=== PATIENT | male | born 2000 | race Caucasian/White ===

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

== ENCOUNTER 2020-05-21 05:29 | Emergency (ER) | payer BC ==
[2020-05-21] MEDS ORDERED: Dicyclomine 10 MG Cap PO ONE (06:13)
--- NOTE | 2020-05-21 06:13 | EDM.PDOC ---
ED HPI GENERAL MEDICAL PROBLEM - General Chief Complaint: Abdominal Pain Stated Complaint: STOMACK PAIN Time Seen by Provider: 05/21/20 06:04 - History of Present Illness INITIAL COMMENTS - FREE TEXT/NARRATIVE: HISTORY AND PHYSICAL: History of present illness: There is a 19-year-old gentleman who presents ER today secondary to abdominal pain that started when he woke up this morning at 4:00. Patient reports that he has had abdominal pain similar to this has been intermittent for approximately 1 year. Patient reports that he went to walk-in clinic and they checked his blood tests and they were all normal but has a follow-up appointment on May 30 for further evaluation. Patient reports that this morning when he woke up he was experiencing some abdominal discomfort. Patient reports that he felt like he had to move his bowels and took him a while to be able to move his bowels. Patient reports after moving his bowels he did feel slightly improved but still having discomfort. Patient reports after moving his bowels he came here to the ED for further evaluation. Patient denies any recent fevers, shakes, chills, nausea, vomiting, diarrhea, dysuria, frequency, urgency, melena, bright red blood per rectum. Patient has a history of hypertension, diabetes, liver, lung, kidney problems. Patient denies any tobacco alcohol or drugs. Patient denies any abdominal or chest surgeries in the past. Patient reports currently his pain is significantly improved prior to any intervention. He reports the pain improved on route to the ED. Review of systems: As per history of present illness and below otherwise all systems reviewed and negative. Past medical history: As per history of present illness and as reviewed below otherwise noncontributory. Surgical history: As per history of present illness and as reviewed below otherwise noncontributory. Social history: No reported history of drug or alcohol abuse. Family history: As per history of present illness and as reviewed below otherwise noncontrib utory. Physical exam: This patient was seen and evaluated during the 2019 SARS-CoV-2 novel coronavirus pandemic period. Community viral transmission is ongoing at time of this encounter and the emergency department is operating under pandemic response procedures. Constitutional: Patient is oriented to person, place, and time. Appears well- developed and well-nourished. No distress. HEENT: Moist mucous membranes Head: Normocephalic and atraumatic Eyes: Right eye exhibits no discharge. Left eye exhibits no discharge. No scleral icterus Neck: Normal range of motion. No tracheal deviation present. Cardiovascular: Normal rate and regular rhythm. Pulmonary: Effort normal, no respiratory distress. Abd: Soft, nondistended, no rebound/guarding, no psoas or obturator signs, no tenderness at Mcberney's point, no Mendoza's sign. Pt does not present with an exam that would be consistent with an acute surgical abdomen at this time, nontender to palpation diffusely throughout his abdomen there was no pain with deep palpation. Musculoskeletal: Normal range of motion Neurologic: Alert and oriented to person, place and time. Skin: Sidell, warm and dry. Psychiatric: Normal mood and affect. Behavior is normal. Judgment and thought content normal. Nursing note and vital signs have been reviewed Diagnostics: Obstruction series: Nonspecific gas pattern. No free air or air-fluid levels. Therapeutics: Bentyl 20 mg p.o. Assessment and plan: This is a 19-year-old gentleman who presents ER today complaining of abdominal discomfort has been intermittent for approximately a year.. Patient does have an appointment with a primary care physician on 30 May for further evaluation. He reports that his blood tests were all been normal in the past but he went to the walk-in clinic to evaluate his pain. At this time, the patient does not present with an acute surgical abdomen. Patient reports that the pain had significantly improved in route to the ED and it is almost completely gone. In the ED, we will obtain obstruction series. I will give the patient a dose of Bentyl. Patient was reevaluated at 6:50 AM: Patient reports that he cannot feel his pain at this time that has resolved. Etiology the patient's pain is unclear but could be related to irritable bowel syndrome. I have discussed with the patient that we will initiate him on Bentyl to see if that might help with symptoms until he is able to follow-up with his primary care physician on May 30. Reassessment at the time of disposition demonstrates that the patient is in no acute distress. The patient has remained stable throughout the entire ED visit and is without objective evidence for acute process requiring urgent intervention or hospitalization. The patient is stable for discharge, counseling is provided as documented above, discussed symptomatic treatment and specific conditions for return. I have spoken with the patient/caregiver and discussed todays findings, in addition to providing specific details for the plan of care. Questions are answered and there is agreement with the plan. Definitive disposition and diagnosis as appropriate pending reevaluation and review of above. abd Pain Score (Numeric/FACES): 5 - Related Data Allergies Allergy/AdvReac Type Severity Reaction Status Date / Time No Known Allergies Allergy Verified 05/21/20 05:48 Home Meds: Home Meds Dicyclomine [Bentyl] 20 mg PO TID PRN #20 tab 05/21/20 [Rx] Past Medical History - Past Health History Medical/Surgical History: Denies Medical/Surgical History HEENT History: Reports: None Cardiovascular History: Reports: None Respiratory History: Reports: None Gastrointestinal History: Reports: None Genitourinary History: Reports: None Musculoskeletal History: Reports: None Neurological History: Reports: None Psychiatric History: Reports: Anxiety, Depression, Other (See Below) Other Psychiatric History: self harm Endocrine/Metabolic History: Reports: None Hematologic History: Reports: None Immunologic History: Reports: None Oncologic (Cancer) History: Reports: None Dermatologic History: Reports: None - Infectious Disease History Infectious Disease History: Reports: None - Past Surgical History Head Surgeries/Procedures: Reports: None Social & Family History - Family History Family Medical History: No Pertinent Family History - Caffeine Use Caffeine Use: Reports: Coffee, Energy Drinks, Soda ED ROS GENERAL - Review of Systems Review Of Systems: See Below ED EXAM, GENERAL - Physical Exam Exam: See Below Course - Vital Signs Last Recorded V/S: Last Vital Signs Temp 98.0 F 05/21/20 05:48 Pulse 89 05/21/20 05:48 Resp 18 05/21/20 05:48 BP 129/69 05/21/20 05:48 Pulse Ox 94 L 05/21/20 05:48 - Orders/Labs/Meds Meds: Medications Discontinued Medications Generic Name Dose Route Start Last Admin Trade Name Freq PRN Reason Stop Dose Admin Dicyclomine HCl 20 mg 05/21/20 06:13 05/21/20 06:34 Dicyclomine 10 Mg Cap PO 05/21/20 06:14 20 mg ONETIME ONE Administration Departure - Departure Time of Disposition: 06:53 Disposition: Home, Self-Care 01 Condition: Good Clinical Impression: Abdominal pain - Discharge Information Instructions: Abdominal Pain, Adult, [id number] Referrals: [facility] [Primary Care Provider] - Forms: ED Department Discharge Additional Instructions: You were seen and evaluated in the ER today secondary to abdominal pain. Etiology of your pain is unclear. Your x-ray is normal. We will start you with Bentyl which is an antispasmodic that might assist you with your symptoms. Please keep your appointment on May 30 to see your doctor for further evaluation of your symptoms. The following information is given to patients seen in the emergency department who are being discharged to home. This information is to outline your options for follow-up care. We provide all patients seen in our emergency department with a follow-up referral. The need for follow-up, as well as the timing and circumstances, are variable depending upon the specifics of your emergency department visit. If you don't have a primary care physician on staff, we will provide you with a referral. We always advise you to contact your personal physician following an emergency department visit to inform them of the circumstance of the visit and for follow-up with them and/or the need for any referrals to a consulting specialist. The emergency department will also refer you to a specialist when appropriate. This referral assures that you have the opportunity for follow-up care with a specialist. All of these measure are taken in an effort to provide you with optimal care, which includes your follow-up. Under all circumstances we always encourage you to contact your private physician who remains a resource for coordinating your care. When calling for follow-up care, please make the office aware that this follow-up is from your recent emergency room visit. If for any reason you are refused follow-up, please contact the [facility] Emergency Department at and asked to speak to the emergency department charge nurse. [facility] - Primary Care [address] [place] [id number] [address] Sepsis Event Note (ED) - Evaluation Sepsis Screening Result: No Definite Risk - Focused Exam Vital Signs: Vital Signs Temp Pulse Resp BP Pulse Ox 05/21/20 05:48 98.0 F 89 18 129/69 94 L
--- NOTE | 2020-05-21 06:45 | CR ---
INDICATION: Abdominal pain. COMPARISON: None. TECHNIQUE: Radiographic examination of the abdomen and chest 5 view study. FINDINGS: Nonspecific intestinal gas pattern without any evidence of intestinal obstruction. No pneumoperitoneum. A 15 mm sclerotic density projecting over the left sacroiliac articulation; rule out bone island. Chest radiograph is unremarkable. IMPRESSION: 1. Negative radiographic examination of the chest and abdomen. 2. 15 mm sclerotic density overlying the left pelvis; rule out bone island. Dictated by Oh Nazario MD @ May 21 2020 6:42AM Signed by Dr. Oh Nazario @ May 21 2020 6:44AM
== END 2020-05-21 07:05 | disposition home or self-care (01) ==
LOC: MW.ED 05:29
DX: R10.9 Unspecified abdominal pain (principal)
CPT/HCPCS: 74022; 99284; A9270; 99283

== ENCOUNTER 2020-11-12 08:44 | Emergency (ER) | payer BC ==
--- NOTE | 2020-11-12 09:03 | EDM.PDOC ---
ED HPI GENERAL MEDICAL PROBLEM - General Chief Complaint: Chest Pain Stated Complaint: HEART PROBLEMS/SOB/WEIGHT ON CHEST Time Seen by Provider: 11/12/20 08:54 - History of Present Illness INITIAL COMMENTS - FREE TEXT/NARRATIVE: History of present illness: [] The patient reports chest pain. He for started noting he got diaphoretic at work even when the temperature was not elevated for the last 7 mornings. He also 5 days ago started having brief intermittent less than 1 second sharp chest pains worse when he coughs or breathes. For the last 5 mornings when he wakes up he has little pressure in his chest and this is associated with diaphoresis. It does not change with activity. It is in the left side of his chest and feels like someone squeezing there. This is gone on since at least 730 this morning when he arrives today. It did not get better or worse at work but he was diaphoretic. His pain is never associated with nausea but perhaps a little bit of shortness of breath. Cardiovascular risk-the patient is a smoker but never as much as a pack a day and has quit recently and been trying to quit. He is not treated for diabetes hypertension or cholesterol. He is overweight. He has no family history that he knows of coronary vessel disease. Thromboembolic disease risk-the patient has no recent trip immobilization surgery or cast. The patient has not had any recent travel of any significance in a car or plane. The patient has never had thromboembolic disease and does not know any family members that have. Review of systems: As per history of present illness and below otherwise all systems reviewed and negative. Past medical history: As per history of present illness and as reviewed below otherwise noncontributory. Surgical history: As per history of present illness and as reviewed below otherwise noncontributory. Social history: No reported history of drug or alcohol abuse. Family history: As per history of present illness and as reviewed below otherwise noncontributory. Physical exam: Constitutional - well developed, well-nourished and in no acute distress HEENT - normocephalic, no evidence of trauma - external nose and mouth normal - no mass in neck and no JVD - mucosae moist EYES - full EOM, PERRL, no icterus - no evidence of inflammation, injection, or drainage Respiratory - no respiratory distress, equal bilateral expansion, lungs clear to auscultation and no abnormal lung sounds Cardiovascular - Regular Rhythm with S1 and S2 appreciated and no murmur, gallop or rub. GI - abdomen soft without distension or organomegaly - normal bowel sounds - no guard or rebound Musculoskeletal there is tenderness in the left sternal border and his pain increases with active resistance with the pectoralis major muscles. No gross deformity of long bones or joints - no tenderness, swelling or edema Neurologic - Alert and oriented times four - CN II-XII grossly intact - motor sensory and coordination symmetrically normal Psychiatric - appropriate mood and affect with normal thought content Hematologic - No petechiae or purpura - mucosa appropriate color and sclera not pale - normal nail bed color and refill Integument - no rash or evidence of trauma - normal turgor Diagnostics: [] Therapeutics: [] Impression: [] Plan: [] Definitive disposition and diagnosis as appropriate pending reevaluation and review of above. Left Chest Pain Score (Numeric/FACES): 4 - Related Data Allergies Allergy/AdvReac Type Severity Reaction Status Date / Time No Known Allergies Allergy Verified 11/12/20 08:53 Past Medical History - Past Health History Medical/Surgical History: Denies Medical/Surgical History HEENT History: Reports: None Cardiovascular History: Reports: None Respiratory History: Reports: None Gastrointestinal History: Reports: None Genitourinary History: Reports: None Musculoskeletal History: Reports: None Neurological History: Reports: None Psychiatric History: Reports: Anxiety, Depression, Other (See Below) Other Psychiatric History: self harm Endocrine/Metabolic History: Reports: None Hematologic History: Reports: None Immunologic History: Reports: None Oncologic (Cancer) History: Reports: None Dermatologic History: Reports: None - Infectious Disease History Infectious Disease History: Reports: None - Past Surgical History Head Surgeries/Procedures: Reports: None Social & Family History - Family History Family Medical History: No Pertinent Family History - Caffeine Use Caffeine Use: Reports: Coffee, Energy Drinks, Soda ED ROS GENERAL - Review of Systems Review Of Systems: Comprehensive ROS is negative, except as noted in HPI. ED EXAM, GENERAL - Physical Exam Exam: See Below Free Text/Narrative:: My physical exam is in the HPI #1 Interpretation EKG Interpretation Comments: EKG performed 11/12/2020 at 8:54 AM shows normal sinus rhythm with a heart rate 62 RI interval 156 QT duration 398 [place] [address] normal T no prior for comparison impression normal EKG Course - Vital Signs Text/Narrative:: 1030 it appears this patient has chest wall pain or musculoskeletal pain. Since his onset of significant pressure was 7:30 AM I will repeat his troponin at 1130 to be sure. 12:50 PM the troponin remains negative. Patient treated for chest wall pain. Last Recorded V/S: Last Vital Signs Temp 36.3 C 11/12/20 08:55 Pulse 88 11/12/20 12:23 Resp 17 11/12/20 12:23 BP 112/74 11/12/20 12:23 Pulse Ox 96 11/12/20 12:23 - Orders/Labs/Meds Orders: Active Orders 24 hr Category Date Time Status Sodium Chloride 0.9% [Saline Flush] Med 11/12/20 09:16 Active 10 ml FLUSH ASDIRECTED PRN Sodium Chloride 0.9% [Saline Flush] Med 11/12/20 09:16 Active 2.5 ml FLUSH ASDIRECTED PRN Saline Lock Insert [OM.PC] Stat Oth 11/12/20 09:17 Ordered Medication Orders Sodium Chloride (Sodium Chloride 0.9% 10 Ml Syringe) 10 ml FLUSH ASDIRECTED PRN PRN Reason: Keep Vein Open Last Admin: 11/12/20 09:46 Dose: 10 ml Documented by: Admin: 11/12/20 09:31 Dose: 10 ml Documented by: EZEKIEL Sodium Chloride (Sodium Chloride 0.9% 2.5 Ml Syringe) 2.5 ml FLUSH ASDIRECTED PRN PRN Reason: Keep Vein Open Last Admin: 11/12/20 09:46 Dose: 2.5 ml Documented by: Admin: 11/12/20 09:31 Dose: 2.5 ml Documented by: EZEKIEL Labs: Laboratory Tests 11/12/20 11/12/20 11/12/20 Range/Units 09:39 09:39 11:33 WBC 5.67 (4.0-11.0) K/uL RBC 5.15 (4.50-5.90) M/uL Hgb 15.5 (13.0-17.0) g/dL Hct 42.8 (38.0-50.0) % MCV 83.1 (80.0-98.0) fL MCH 30.1 (27.0-32.0) pg MCHC 36.2 (31.0-37.0) g/dL RDW Std Deviation 40.7 (28.0-62.0) fl RDW Coeff of Fernando 14 (11.0-15.0) % Plt Count 253 (150-400) K/uL MPV 9.40 (7.40-12.00) fL Neut % (Auto) 50.0 (48.0-80.0) % Lymph % (Auto) 38.3 (16.0-40.0) % [place] % (Auto) 7.6 (0.0-15.0) % Eos % (Auto) 3.7 (0.0-7.0) % Baso % (Auto) 0.4 (0.0-1.5) % Neut # (Auto) 2.8 (1.4-5.7) K/uL Lymph # (Auto) 2.2 (0.6-2.4) K/uL [place]berry # (Auto) 0.4 (0.0-0.8) K/uL Eos # (Auto) 0.2 (0.0-0.7) K/uL Baso # (Auto) 0.0 (0.0-0.1) K/uL Nucleated RBC % 0.0 /100WBC Nucleated RBCs # 0 K/uL Sodium 142 (136-148) mmol/L Potassium 3.7 (3.5-5.1) mmol/L Chloride 103 (98-107) mmol/L Carbon Dioxide 26.1 (21.0-32.0) mmol/L BUN 15 (7.0-18.0) mg/dL Creatinine 1.0 (0.8-1.3) mg/dL Est Cr Clr Drug Dosing 129.33 mL/min Estimated GFR (MDRD) > 60.0 ml/min Glucose 90 (74-106) mg/dL Calcium 9.3 (8.5-10.1) mg/dL Total Bilirubin 0.3 (0.2-1.0) mg/dL AST 22 (15-37) IU/L ALT 35 (14-63) IU/L Alkaline Phosphatase 96 (46-116) U/L Troponin I < 0.050 < 0.050 (0.000-0.056) ng/mL Total Protein 7.1 (6.4-8.2) g/dL Albumin 3.9 (3.4-5.0) g/dL Globulin 3.2 (2.6-4.0) g/dL Albumin/Globulin Ratio 1.2 (0.9-1.6) Meds: Medications Generic Name Dose Route Start Last Admin Trade Name Freq PRN Reason Stop Dose Admin Sodium Chloride 10 ml 11/12/20 09:16 11/12/20 09:46 Sodium Chloride 0.9% 10 Ml Syringe FLUSH 10 ml ASDIRECTED PRN Administration Keep Vein Open Sodium Chloride 2.5 ml 11/12/20 09:16 11/12/20 09:46 Sodium Chloride 0.9% 2.5 Ml Syringe FLUSH 2.5 ml ASDIRECTED PRN Administration Keep Vein Open Discontinued Medications Generic Name Dose Route Start Last Admin Trade Name Freq PRN Reason Stop Dose Admin Aspirin 324 mg 11/12/20 09:17 11/12/20 09:44 Aspirin 81 Mg Tab.Chew PO 11/12/20 09:18 324 mg ONETIME ONE Administration Departure - Departure Time of Disposition: 12:50 Disposition: Home, Self-Care 01 Condition: Good Clinical Impression: Musculoskeletal chest pain - Discharge Information Instructions: Chest Wall Pain, [id number] Referrals: PCP,None [Primary Care Provider] - Forms: ED Department Discharge Additional Instructions: Anti-inflammatories and heat to the area are best. Try to rest the pectoralis muscle on the left side is much as possible over the next few days. [facility] - Primary Care [address] [place] [address] [place] [phone] The following information is given to patients seen in the emergency department who are being discharged to home. This information is to outline your options for follow-up care. We provide all patients seen in our emergency department with a follow-up referral. The need for follow-up, as well as the timing and circumstances, are variable depending upon the specifics of your emergency department visit. If you don't have a primary care physician on staff, we will provide you with a referral. We always advise you to contact your personal physician following an emergency department visit to inform them of the circumstance of the visit and for follow-up with them and/or the need for any referrals to a consulting specialist. The emergency department will also refer you to a specialist when appropriate. This referral assures that you have the opportunity for follow-up care with a specialist. All of these measure are taken in an effort to provide you with optimal care, which includes your follow-up. Under all circumstances we always encourage you to contact your private physician who remains a resource for coordinating your care. When calling for follow-up care, please make the office aware that this follow-up is from your recent emergency room visit. If for any reason you are refused follow-up, please contact the [facility] Emergency Department at and asked to speak to the emergency department charge nurse. Sepsis Event Note (ED) - Focused Exam Vital Signs: Vital Signs Temp Pulse Resp BP Pulse Ox 11/12/20 12:23 88 17 112/74 96 11/12/20 08:55 36.3 C 72 17 121/71 96 - My Orders Last 24 Hours: My Active Orders 11/12/20 09:16 Sodium Chloride 0.9% [Saline Flush] 10 ml FLUSH ASDIRECTED PRN Sodium Chloride 0.9% [Saline Flush] 2.5 ml FLUSH ASDIRECTED PRN 11/12/20 09:17 Saline Lock Insert [OM.PC] Stat - Assessment/Plan Last 24 Hours: My Active Orders 11/12/20 09:16 Sodium Chloride 0.9% [Saline Flush] 10 ml FLUSH ASDIRECTED PRN Sodium Chloride 0.9% [Saline Flush] 2.5 ml FLUSH ASDIRECTED PRN 11/12/20 09:17 Saline Lock Insert [OM.PC] Stat
[2020-11-12] MEDS ORDERED: Aspirin 81 MG Tab.Chew PO ONE (09:17)
[2020-11-12] MEDS: Sodium Chloride 0.9% 2.5 ML Syringe FLUSH PRN ×2 (09:31→09:46)
[2020-11-12] MEDS: Sodium Chloride 0.9% 10 ML Syringe FLUSH PRN ×2 (09:31→09:46)
--- NOTE | 2020-11-12 09:51 | CR ---
INDICATION: Chest pain TECHNIQUE: Chest 1 view. COMPARISON: None FINDINGS: Cardiovascular and mediastinum: Heart size and vasculature are normal in caliber and appearance. Mediastinum is within normal limits. Lungs and pleural space: Lungs are clear. No sign of infiltrate or mass. No sign of pleural effusion. No pneumothorax. Bones and soft tissues: No significant findings. IMPRESSION: Unremarkable chest. Dictated by Refugio Harden MD @ 11/12/2020 9:49:51 AM (Electronically Signed)
[2020-11-12 10:24] LABS: BLOOD UREA NITROGEN,BUN 15 mg/dL (7.0-18.0); CARBON DIOXIDE,CO2 26.1 mmol/L (21.0-32.0); CHLORIDE,CL 103 mmol/L (98-107); GLUCOSE RANDOM 90 mg/dL (74-106); POTASSIUM,K 3.7 mmol/L (3.5-5.1); SODIUM,NA 142 mmol/L (136-148)
== END 2020-11-12 13:09 | disposition home or self-care (01) ==
LOC: MW.ED 08:44
DX: R07.89 Other chest pain (principal); F17.210 Nicotine dependence, cigarettes, uncomplicated
CPT/HCPCS: 36415; 71045; 80053; 84484; 85025; 93005; 99285; A9270

== ENCOUNTER 2021-02-21 23:35 | Emergency (ER) | payer BC ==
[2021-02-22] MEDS ORDERED: Sodium Chloride 0.9% 10 ML Syringe FLUSH PRN (00:03)
[2021-02-22] MEDS ORDERED: Sodium Chloride 0.9% 2.5 ML Syringe FLUSH PRN (00:03)
[2021-02-22 00:47] LABS: BLOOD UREA NITROGEN,BUN 17 mg/dL (7.0-18.0); CARBON DIOXIDE,CO2 25.2 mmol/L (21.0-32.0); CHLORIDE,CL 106 mmol/L (98-107); GLUCOSE RANDOM 128 mg/dL (74-106); POTASSIUM,K 3.5 mmol/L (3.5-5.1); SODIUM,NA 142 mmol/L (136-148)
--- NOTE | 2021-02-22 00:58 | CT ---
INDICATION: Syringomyelia with removal, now drainage. TECHNIQUE: CT cervical spine without contrast. COMPARISON: MRI cervical spine 11/24/2020 FINDINGS: Vertebrae: No evidence of acute fracture. Status post suboccipital craniotomy and resection of the posterior arch of C1. Discs and facet joints: Disc spaces and facets are within normal limits. Extraspinal findings: Fluid extends into the craniotomy defect, which measures up to 5.3 centimeters craniocaudal, 2.3 centimeters and a posterior and 2.4 centimeters transverse. This is inseparable from the posterior CSF on this noncontrast evaluation. Increased number of lymph nodes in the posterior triangle. IMPRESSION: 1. Status post suboccipital craniotomy and resection of the posterior arch of C1 with fluid density measuring up to 2.3 x 2.4 x 5.3 centimeters extending into the defect and inseparable from the adjacent CSF. Appearance suggests a pseudomeningocele with the differential including a postoperative seroma. Please note that all CT scans at this facility use dose modulation, iterative reconstruction, and/or weight-based dosing when appropriate to reduce radiation dose to as low as reasonably achievable. Dictated by Teo Amador MD @ 02/22/2021 12:56:45 AM (Electronically Signed)
--- NOTE | 2021-02-22 03:31 | EDM.PDOC ---
<Demond Guerra - Last Filed: 02/22/21 04:30> ED HPI GENERAL MEDICAL PROBLEM - General Chief Complaint: General Stated Complaint: NECK LEAKING FLUID AFTER SURGERY Time Seen by Provider: 02/21/21 23:58 - History of Present Illness INITIAL COMMENTS - FREE TEXT/NARRATIVE: HISTORY AND PHYSICAL: History of present illness: This is a 20-year-old gentleman who has a history significant for a syringomyelia that was treated approxi-1 month ago in [facility]. Patient reports that Dr. Sarah Boland did the surgery on him. In reading the patient's op note, he had a suboccipital craniectomy with a C1 laminectomy and a patch duraplasty. Patient reports that he has been doing well and has had no issues with pain or discomfort. Patient denies any neurological symptoms. Patient denies any numbness or paresthesias to his upper or lower extremities. Patient has any weakness to his upper or lower extremities. Patient presents ER today secondary to clear drainage from the incision site without any odor or purulence. He reports that he was concerned that this might be cerebrospinal fluid leak. Patient denies any recent fevers, shakes, chills, nausea, vomiting, diarrhea, dysuria, frequency or urgency, chest pain, shortness of breath, vomiting. Patient is currently not on any antibiotics. Patient is not spoken to his neurosurgeon since his symptoms started earlier today. Review of systems: As per history of present illness and below otherwise all systems reviewed and negative. Past medical history: As per history of present illness and as reviewed below otherwise noncontributory. Surgical history: As per history of present illness and as reviewed below otherwise noncontributory. Social history: No reported history of drug abuse. Family history: As per history of present illness and as reviewed below otherwise noncontributory. Physical exam: This patient was seen and evaluated during the 2019 SARS-CoV-2 novel coronavirus pandemic period. Community viral transmission is ongoing at time of this encounter and the emergency department is operating under pandemic response procedures. Constitutional: Patient is oriented to person, place, and time. Appears well- developed and well-nourished. No distress. HEENT: Moist mucous membranes. Neck supple, no nuchal rigidity, no photophobia, no Kernig's sign or Brudzinski sign, patient does not present with signs or symptoms of be consistent with meningitis. Head: Normocephalic and atraumatic Eyes: Right eye exhibits no discharge. Left eye exhibits no discharge. No scl eral icterus Neck: Normal range of motion. No tracheal deviation present. Cardiovascular: Normal rate and regular rhythm. Pulmonary: Effort normal, no respiratory distress. Abdominal: No distention Musculoskeletal: Normal range of motion Neuro: A&Ox3. Cranial nerves II-XII grossly intact, 5/5 strength to bilateral upper and lower extremities, sensation intact to bilateral upper and lower ext remities, no nystagmus, PERRLA, EOMI, normal speech, proprioception intact to bilateral lower extremities, normal finger to nose test, gait normal Skin: [place], warm and dry. Psychiatric: Normal mood and affect. Behavior is normal. Judgment and thought content normal. Nursing note and vital signs have been reviewed Patient's ER physical exam is significant for a well-healing incision that is vertical over his cervical spine posteriorly. There is a small punctate area where there is a small amount of clear nonpurulent nonmalodorous fluid that is being expressed. Diagnostics: CT scan reveals status post suboccipital craniotomy and resection of the posterior arch of C1 with fluid density measuring up to 2.3 x 2.4 x 5.3 cm extending into the defect and inseparable from the adjacent CSF. Appearance suggests a pseudomeningocele with the differential including a postoperative seroma. CBC, CMP, CRP, sed rate all within normal limits Therapeutics: [] Assessment and plan: This is a 20-year-old who presents ER today status post resection of his syringomyelia in [place] approximate 1 month ago presents secondary to drainage at the site of the incision. CT scan is concerning for pseudomeningocele. Given my limited experience with this type of procedure I have tried to contact his doctor, Dr. Sarah Boland in [place] at [phone] multiple times. I have called the answering service no less than 4x2 have them contact the on-call physician for Dr. Boland. They have attempted to contact that physician multiple times without any success and now they are attempting to page Dr. Kiera romero himself. Given that have been unable to obtain access to Dr. Boland for assistance with postoperative management of this complication, I have contacted Dr. Francisco in [facility] neurosurgery. She has recommended that the patient be transferred to [facility] for to evaluate him and likely admit the patient. She is told me to inform the patient that he will likely to be in the hospital for approximately 1 week and pack accordingly. She is recommended no IV antibiotics at this time and to displaced sterile dressing on the wound. Unfortunate when I spoke to Dr. Rosenthal at [facility], they have no bed availability to accept this patient in transfer. I have spoken to the patient regarding the current situation. The patient has requested to be discharged home and he would like to go see his doctor in [place] on Tuesday. Patient reports that he does not wish to go to [facility] or any other hospital and have any surgical procedure other than by Dr. Boland in [place]. I have advised him against this since I am unsure of the possible complications and I thought this would be an unwise decision. I have given them the different options of trying to get him transferred to [facility], discharging him and having him drive up to [facility] as this likely will have no need for ambulance transfer since he will not need an IV, fluids or antibiotics or pain management. Or the final option would be for him to obtain plain tickets to go to [place] to be seen and evaluated by his personal physician/neurosurgeon. I have contacted [facility] and they do not have ability to excepted for transfer. Although when I did speak Dr. Mera that she had recommended transfer, Dr. Rosenthal reports they are unable to accept transfers from other facilities at this time secondary to no capacities. I have contacted [facility], they do not have capabilities to accept patient for transfer. I have discussed the case with Jack Leonard, their neurosurgeon, Dr. Whyte , does not feel comfortable accepting this patient in transfer and reports this is outside his scope of practice and comfort. He recommended patient get transferred to [place]. I have discussed the case with [facility] and they do not have capacity to accept patient for transfer. I have rediscussed the situation with the patient at this time he reports that he does not wish to be transferred to another facility as any operation or procedure that needs to be done he wants to have done by his doctor in [place], Dr. Boland. After utilizing extensive time of shared decision making, at this time, he is going to sign out of the ER and will obtain plain tickets to fly down to [place] to see his doctor on Tuesday. I have discussed with the patient that if he develops any new or concerning symptoms that he needs to drive immediately to [facility] with Dr. Mera had agreed to see and assist him. I have recommended to the patient that he keeps a sterile dressing on the wound at all times per Dr. Mera's recommendation. No antibiotics were recommended at this time by Dr. Mera. Reassessment at the time of disposition demonstrates that the patient is in no acute distress. The patient has remained stable throughout the entire ED visit and is without objective evidence for acute process requiring urgent intervention or hospitalization. The patient is stable for discharge, counseling is provided as documented above, discussed symptomatic treatment and specific conditions for return. I have spoken with the patient/caregiver and discussed todays findings, in addition to providing specific details for the plan of care. Questions are answered and there is agreement with the plan. 4:30 AM: Addendum: Immediately prior to the patient being discharged, I finally received a call back from the neurosurgical resident in [place], Dr.Kavelin Knapp and discussed the patient's case with him. I have discussed with him that the patient plans at this time to leave the ED and attempt to get to [place] on Tuesday for Dr. Boland to evaluate him. The resident did not feel comfortable clearing the patient with this course of action without discussing the case first with Dr. Boland. He is requested that we keep the patient in the ED until 8 AM at which time he will be able to discuss the case directly with Dr. Boland since Dr. Boland is currently not on-call. I have discussed this conversation with the patient and he is extremely amenable to staying here until we hear back from the neurosurgical resident/Dr. Boland regarding the next course of action that they would recommend. 7 AM: Case signed out to Dr. Slade pending neurosurgical callback. Definitive disposition and diagnosis as appropriate pending reevaluation and review of above. - Related Data Allergies Allergy/AdvReac Type Severity Reaction Status Date / Time No Known Allergies Allergy Verified 02/22/21 00:18 Home Meds: Home Meds Sulfamethoxazole/Trimethoprim [Bactrim Ds Tablet] 1 each PO BID #10 tablet 02/22/21 [Rx] Past Medical History - Past Health History Medical/Surgical History: Denies Medical/Surgical History HEENT History: Reports: None Cardiovascular History: Reports: None Respiratory History: Reports: None Gastrointestinal History: Reports: None Genitourinary History: Reports: None Musculoskeletal History: Reports: None Neurological History: Reports: None Other Neuro History: neck surgery-fluid surrounding spinal cord Psychiatric History: Reports: Anxiety, Depression, Other (See Below) Other Psychiatric History: self harm Endocrine/Metabolic History: Reports: None Hematologic History: Reports: None Immunologic History: Reports: None Oncologic (Cancer) History: Reports: None Dermatologic History: Reports: None - Infectious Disease History Infectious Disease History: Reports: None, Novel Coronavirus - Past Surgical History Head Surgeries/Procedures: Reports: None Social & Family History - Family History Family Medical History: No Pertinent Family History - Tobacco Use Tobacco Use Status *Q: Current Every Day Tobacco User Years of Tobacco use: 2 Packs/Tins Daily: 0.1 - Caffeine Use Caffeine Use: Reports: None - Recreational Drug Use Recreational Drug Use: No ED ROS GENERAL - Review of Systems Review Of Systems: See Below ED EXAM, GENERAL - Physical Exam Exam: See Below Departure - Departure Time of Disposition: 03:52 Disposition: Home, Self-Care 01 Condition: Good 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 At this time in discussion with your neurosurgeon Dr. Boland he recommended placement of a stitch along the middle area of your wound to help with healing. We did place the stitch. Keep this area clean with soap and water. We recommend that you get reevaluated in 5 to 7 days for stitch removal. I do recommend that if you have any redness, pus drainage, neck pain, fever I would like you to return to the emergency department as there is a chance of meningitis. We did provide you with Bactrim here per recommendation of your neurosurgeon. I recommend you take this twice a day for the next 5 days. Your prescription was sent to [facility]. You have any questions or concerns please contact the nurse hotline to your neurosurgeon's clinic in [place]. The patient is informed of any results of their evaluation and diagnostic workup and all questions are answered. They are given discharge instructions and return precautions. The patient is stable for discharge. The patient states they understand and agree with the plan and that they will return if their symptoms get worse or if they have any new concerns. The following information is given to patients seen in the emergency department who are being discharged to home. This information is to outline your options for follow-up care. We provide all patients seen in our emergency department with a follow-up referral. The need for follow-up, as well as the timing and circumstances, are variable depending upon the specifics of your emergency department visit. If you don't have a primary care physician on staff, we will provide you with a referral. We always advise you to contact your personal physician following an emergency department visit to inform them of the circumstance of the visit and for follow-up with them and/or the need for any referrals to a consulting specialist. The emergency department will also refer you to a specialist when appropriate. This referral assures that you have the opportunity for follow-up care with a specialist. All of these measure are taken in an effort to provide you with optimal care, which includes your follow-up. Under all circumstances we always encourage you to contact your private physician who remains a resource for coordinating your care. When calling for follow-up care, please make the office aware that this follow-up is from your recent emergency room visit. If for any reason you are refused follow-up, please contact the [facility] Emergency Department at and asked to speak to the emergency department charge nurse. [facility] - Primary Care [address] [place] [id number] [facility] [address] [place] [id number] Sepsis Event Note (ED) - Evaluation Sepsis Screening Result: No Definite Risk <Marito Nichols - Last Filed: 02/22/21 10:25> ED HPI GENERAL MEDICAL PROBLEM - History of Present Illness INITIAL COMMENTS - FREE TEXT/NARRATIVE: Patient was signed out to me by Dr. Guerra pending discussion with neurosurgeon at 7 AM. I promptly performed a detailed physical examination and my examination was done after ED treatments were initiated by the signout provider. Patient has been under the care of previous provider up until this point. In short this is a 20-year-old man with a history of syringomyelia status post suboccipital craniectomy with a C1 laminectomy with a patch and duraplasty approximately 1 month ago who presents to the emergency department with drainage from incision site. Patient's labs are all within normal limits, Covid is negative and review of imaging reveals a fluid density measuring 2.3 x 2.4 x 5.3 cm extending into the defect which is inseparable from the adjacent CSF suggesting pseudomeningocele versus postoperative seroma. On my examination the patient's vitals are normal and the patient is afebrile without any meningismus. The patient is alert and oriented x4 and a neurological exam which is normal. At this time we will await contact by patient's neurosurgeon Dr. Boland. I was contacted by Dr. Boland. We did discuss the case thoroughly. At this time he said it could be a pseudomeningocele however given that the patient does not have a fever no white count, inflammatory markers are normal and after we discussed imaging and review the patient's wound he recommended placement of superficial stitching to the wound and starting the patient on Bactrim for prophylaxis. He stated that he would contact the patient for follow-up however the patient does need to follow-up in 5 to 7 days for stitch removal. I did discuss with the patient my discussion with his neurosurgeon. He states that he was mainly coming in for stitches. I did discuss risks and benefits of placement of the stitches and discussed strict return precautions such as fever, neck stiffness, pain, purulent drainage, redness and he was amenable to stitch at this time. Laceration Repair Note Repair of the 1 cm posterior neck wound was done by myself. The area was prepped in sterile fashion and I wore cap, gown, and facemask with eye protection. The area was cleaned with Betadine. Local anesthesia with lidocaine was performed. Using 4-[address] I did place a running stitch through the 1 inch soft tissue defect. Wound edges approximated well. The area was then cleaned and a sterile bandage was placed. After repair I did discuss again strict return precautions. He was amenable to discharge and had no further questions DISPOSITION: The patient was discharged home in stable condition. The patient will follow up with his neurosurgeon and primary care physician in 3 to 5 days CONDITION: Fair PROCEDURES: Postoperative wound stitch placement FINAL IMPRESSION(S)/DIAGNOSES: 1. Acute postoperative seroma versus pseudomeningocele Marito Nichols M.D. Course - Vital Signs Last Recorded V/S: Last Vital Signs Temp 36.2 C 02/21/21 23:41 Pulse 75 02/22/21 09:56 Resp 16 02/22/21 09:56 BP 120/86 02/22/21 09:56 Pulse Ox 98 02/22/21 09:56 - Orders/Labs/Meds Orders: Active Orders 24 hr Category Date Time Status Saline Lock Insert [OM.PC] Stat Oth 02/22/21 00:03 Ordered Labs: Laboratory Tests 02/22/21 02/22/21 02/22/21 Range/Units 00:19 00:19 00:19 WBC 8.28 (4.0-11.0) K/uL RBC 5.32 (4.50-5.90) M/uL Hgb 15.7 (13.0-17.0) g/dL Hct 44.3 (38.0-50.0) % MCV 83.3 (80.0-98.0) fL MCH 29.5 (27.0-32.0) pg MCHC 35.4 (31.0-37.0) g/dL RDW Std Deviation 39.6 (28.0-62.0) fl RDW Coeff of Fernando 13 (11.0-15.0) % Plt Count 269 (150-400) K/uL MPV 9.30 (7.40-12.00) fL Neut % (Auto) 49.7 (48.0-80.0) % Lymph % (Auto) 40.1 H (16.0-40.0) % [place] % (Auto) 8.0 (0.0-15.0) % Eos % (Auto) 1.7 (0.0-7.0) % Baso % (Auto) 0.5 (0.0-1.5) % Neut # (Auto) 4.1 (1.4-5.7) K/uL Lymph # (Auto) 3.3 H (0.6-2.4) K/uL [place] # (Auto) 0.7 (0.0-0.8) K/uL Eos # (Auto) 0.1 (0.0-0.7) K/uL Baso # (Auto) 0.0 (0.0-0.1) K/uL ESR 4 (0-14) mm/hr Sodium 142 (136-148) mmol/L Potassium 3.5 (3.5-5.1) mmol/L Chloride 106 (98-107) mmol/L Carbon Dioxide 25.2 (21.0-32.0) mmol/L BUN 17 (7.0-18.0) mg/dL Creatinine 1.1 (0.8-1.3) mg/dL Est Cr Clr Drug Dosing 121.06 mL/min Estimated GFR (MDRD) > 60.0 ml/min Glucose 128 H (74-106) mg/dL Calcium 9.1 (8.5-10.1) mg/dL Total Bilirubin 0.1 L (0.2-1.0) mg/dL AST 12 L (15-37) IU/L ALT 25 (14-63) IU/L Alkaline Phosphatase 94 (46-116) U/L C-Reactive Protein < 0.20 (0.00-0.90) mg/dL Total Protein 7.4 (6.4-8.2) g/dL Albumin 3.9 (3.4-5.0) g/dL Globulin 3.5 (2.6-4.0) g/dL Albumin/Globulin Ratio 1.1 (0.9-1.6) SARS-CoV-2 RNA (YING) (NEGATIVE) 02/22/21 Range/Units 02:52 WBC (4.0-11.0) K/uL RBC (4.50-5.90) M/uL Hgb (13.0-17.0) g/dL Hct (38.0-50.0) % MCV (80.0-98.0) fL MCH (27.0-32.0) pg MCHC (31.0-37.0) g/dL RDW Std Deviation (28.0-62.0) fl RDW Coeff of Fernando (11.0-15.0) % Plt Count (150-400) K/uL MPV (7.40-12.00) fL Neut % (Auto) (48.0-80.0) % Lymph % (Auto) (16.0-40.0) % [place] % (Auto) (0.0-15.0) % Eos % (Auto) (0.0-7.0) % Baso % (Auto) (0.0-1.5) % Neut # (Auto) (1.4-5.7) K/uL Lymph # (Auto) (0.6-2.4) K/uL [place] # (Auto) (0.0-0.8) K/uL Eos # (Auto) (0.0-0.7) K/uL Baso # (Auto) (0.0-0.1) K/uL ESR (0-14) mm/hr Sodium (136-148) mmol/L Potassium (3.5-5.1) mmol/L Chloride (98-107) mmol/L Carbon Dioxide (21.0-32.0) mmol/L BUN (7.0-18.0) mg/dL Creatinine (0.8-1.3) mg/dL Est Cr Clr Drug Dosing mL/min Estimated GFR (MDRD) ml/min Glucose (74-106) mg/dL Calcium (8.5-10.1) mg/dL Total Bilirubin (0.2-1.0) mg/dL AST (15-37) IU/L ALT (14-63) IU/L Alkaline Phosphatase (46-116) U/L C-Reactive Protein (0.00-0.90) mg/dL Total Protein (6.4-8.2) g/dL Albumin (3.4-5.0) g/dL Globulin (2.6-4.0) g/dL Albumin/Globulin Ratio (0.9-1.6) SARS-CoV-2 RNA (YING) NEGATIVE (NEGATIVE) Meds: Medications Discontinued Medications Generic Name Dose Route Start Last Admin Trade Name Freq PRN Reason Stop Dose Admin Lidocaine HCl 10 ml 02/22/21 09:00 02/22/21 09:07 Lidocaine 1% 5 Ml Sdv INJECT 02/22/21 09:01 10 ml ONETIME ONE Administration Sodium Chloride 10 ml 02/22/21 00:03 02/22/21 04:30 Sodium Chloride 0.9% 10 Ml Syringe FLUSH 10 ml ASDIRECTED PRN Administration Keep Vein Open Sodium Chloride 2.5 ml 02/22/21 00:03 02/22/21 04:30 Sodium Chloride 0.9% 2.5 Ml Syringe FLUSH 2.5 ml ASDIRECTED PRN Administration Keep Vein Open Trimethoprim/Sulfamethoxazole 1 tab 02/22/21 09:42 02/22/21 09:46 Sulfamethoxazole/Trimethoprim 800-160 Mg Tab PO 02/22/21 09:43 1 tab ONETIME ONE Administration Trimethoprim/Sulfamethoxazole 1 tab 02/22/21 09:55 02/22/21 10:07 Sulfamethoxazole/Trimethoprim 800-160 Mg Tab PO 02/22/21 09:56 1 tab ONETIME ONE Administration Departure - Departure Time of Disposition: 09:44 Sepsis Event Note (ED) - Focused Exam Vital Signs: Vital Signs Temp Pulse Resp BP Pulse Ox 02/22/21 09:56 75 16 120/86 98 02/22/21 07:42 74 16 120/85 98 02/22/21 04:31 88 16 114/67 96 02/22/21 03:17 94 18 115/73 95 02/22/21 01:52 91 18 126/57 L 97 02/21/21 23:41 36.2 C 107 H 16 123/69 96
[2021-02-22] MEDS ORDERED: Lidocaine 1% 10 ML MDV INJECT ONE (08:54)
[2021-02-22] MEDS ORDERED: Sulfamethoxazole/Trimethoprim 800-160 MG Tab PO ONE ×2 (09:42→09:55)
== END 2021-02-22 10:10 | disposition home or self-care (01) ==
LOC: MW.ED 23:35
DX: G97.82 Other postprocedural complications and disorders of nervous system (principal); G96.198 Other disorders of meninges, not elsewhere classified; S11.91XA Laceration without foreign body of unspecified part of neck, initial encounter; Z20.822 Contact with and (suspected) exposure to COVID-19; Z72.0 Tobacco use; W26.8XXA Contact with other sharp object(s), not elsewhere classified, initial encounter
CPT/HCPCS: 12001; 36415; 72125; 80053; 85025; 85652; 86140; 87635; 99284; A9270; U0002

== ENCOUNTER 2021-02-26 09:34 | Emergency (ER) | payer BC ==
[2021-02-26] MEDS ORDERED: diphenhydrAMINE 50 MG/ML SDV IVPUSH ONE (09:56)
[2021-02-26] MEDS ORDERED: Sodium Chloride 0.9% 1,000 ML IV ONE (09:56)
[2021-02-26] MEDS ORDERED: Ketorolac 30 MG/ML SDV IVPUSH ONE (09:56)
[2021-02-26] MEDS ORDERED: Metoclopramide 10 MG/2 ML SDV IVPUSH ONE (09:56)
[2021-02-26] MEDS ORDERED: Acetaminophen/Butalbital/Caffeine 325-50-40 MG Tab PO ONE (10:00)
--- NOTE | 2021-02-26 10:02 | EDM.PDOC ---
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 Patient was seen in the emergency department 5 days ago for leaking fluid from the surgical site. Neurosurgery was consulted at that time and just recommended placing stitches to close the superficial wound. Patient denies any neck pain or stiffness. He notes for the last 3 days a bilateral frontal headache associated with sinus congestion. He denies any fevers. He notes that he has been sleeping in a house with cats and he is allergic to cats and thinks this might be exacerbating it. He also notes that his fiance was diagnosed with streptococcal pharyngitis little over a week ago so he is concerned he may have this. headache Pain Score (Numeric/FACES): 3 - Related Data Allergies Allergy/AdvReac Type Severity Reaction Status Date / Time No Known Allergies Allergy Verified 02/26/21 09:38 Home Meds: Home Meds Sulfamethoxazole/Trimethoprim [Bactrim Ds Tablet] 1 each PO BID #10 tablet 02/22/21 [Rx] Past Medical History - Past Health History Medical/Surgical History: Denies Medical/Surgical History HEENT History: Reports: None Cardiovascular History: Reports: None Respiratory History: Reports: None Gastrointestinal History: Reports: None Genitourinary History: Reports: None Musculoskeletal History: Reports: None, Other (See Below) Other Musculoskeletal History: Had surgery 01/21/2021 to release spinal fluid sack on back of neck. Neurological History: Reports: None Other Neuro History: neck surgery-fluid surrounding spinal cord Psychiatric History: Reports: Anxiety, Depression, Other (See Below) Other Psychiatric History: self harm Endocrine/Metabolic History: Reports: None Hematologic History: Reports: None Immunologic History: Reports: None Oncologic (Cancer) History: Reports: None Dermatologic History: Reports: None - Infectious Disease History Infectious Disease History: Reports: Novel Coronavirus - Past Surgical History Head Surgeries/Procedures: Reports: None Social & Family History - Family History Family Medical History: No Pertinent Family History - Caffeine Use Caffeine Use: Reports: Coffee, Energy Drinks, Soda - Recreational Drug Use Recreational Drug Use: No ED ROS GENERAL - Review of Systems Review Of Systems: Comprehensive ROS is negative, except as noted in HPI. ED EXAM, GENERAL - Physical Exam Exam: See Below Exam Limited By: No Limitations General Appearance: Alert, WD/WN, No Apparent Distress Eye Exam: Bilateral Eye: EOMI, PERRL Ears: Hearing Grossly Normal Throat/Mouth: Normal Inspection, Normal Oropharynx, Normal Voice, No Airway Compromise Head: Atraumatic, Normocephalic Neck: Normal Inspection, Supple, Non-Tender, Full Range of Motion Respiratory/Chest: No Respiratory Distress, Lungs Clear, Normal Breath Sounds, No Accessory Muscle Use Cardiovascular: Normal Peripheral Pulses, Regular Rate, Rhythm Extremities: Normal Inspection Neurological: Alert, CN II-XII Intact, Normal Cognition, Normal Gait, No Motor/Sensory Deficits Psychiatric: Normal Affect, Normal Mood Skin Exam: Warm, Dry, Intact, Normal Color Course - Vital Signs Last Recorded V/S: Last Vital Signs Temp 97.1 F 02/26/21 09:39 Pulse 114 H 02/26/21 10:27 Resp 16 02/26/21 10:27 BP 130/70 02/26/21 10:27 Pulse Ox 98 02/26/21 10:27 - Orders/Labs/Meds Orders: Active Orders 24 hr Category Date Time Status Chest 1V Frontal [CR] Stat Exams 02/26/21 10:50 Taken COMPREHENSIVE METABOLIC PN,CMP [CHEM] Stat Lab 02/26/21 10:05 Received STREP A BY PCR [MOLEC] Stat Lab 02/26/21 10:41 Received Saline Lock Insert [OM.PC] Stat Oth 02/26/21 09:56 Ordered Labs: Laboratory Tests 02/26/21 02/26/21 Range/Units 09:50 10:05 WBC 7.89 (4.0-11.0) K/uL RBC 4.97 (4.50-5.90) M/uL Hgb 14.8 (13.0-17.0) g/dL Hct 41.7 (38.0-50.0) % MCV 83.9 (80.0-98.0) fL MCH 29.8 (27.0-32.0) pg MCHC 35.5 (31.0-37.0) g/dL RDW Std Deviation 40.5 (28.0-62.0) fl RDW Coeff of Fernando 13 (11.0-15.0) % Plt Count 204 (150-400) K/uL MPV 9.20 (7.40-12.00) fL Neut % (Auto) 74.4 (48.0-80.0) % Lymph % (Auto) 16.6 (16.0-40.0) % Upson % (Auto) 7.7 (0.0-15.0) % Eos % (Auto) 1.0 (0.0-7.0) % Baso % (Auto) 0.3 (0.0-1.5) % Neut # (Auto) 5.9 H (1.4-5.7) K/uL Lymph # (Auto) 1.3 (0.6-2.4) K/uL Upson # (Auto) 0.6 (0.0-0.8) K/uL Eos # (Auto) 0.1 (0.0-0.7) K/uL Baso # (Auto) 0.0 (0.0-0.1) K/uL Nucleated RBC % 0.0 /100WBC Nucleated RBCs # 0 K/uL Influenza Type A RNA NEGATIVE (NEGATIVE) Influenza Type B RNA NEGATIVE (NEGATIVE) SARS-CoV-2 RNA (YING) POSITIVE H (NEGATIVE) Meds: Medications Discontinued Medications Generic Name Dose Route Start Last Admin Trade Name Freq PRN Reason Stop Dose Admin Acetaminophen/Butalbital/Caffeine 1 tab 02/26/21 10:00 02/26/21 10:14 Acetaminophen/Butalbital/Caffeine 325-50-40 Mg Tab PO 02/26/21 10:01 1 tab ONETIME ONE Administration Diphenhydramine HCl 50 mg 02/26/21 09:56 02/26/21 10:14 Diphenhydramine 50 Mg/Ml Sdv IVPUSH 02/26/21 09:57 50 mg ONETIME ONE Administration Sodium Chloride 1,000 mls @ 999 mls/hr 02/26/21 09:56 02/26/21 10:15 Normal Saline IV 02/26/21 10:56 999 mls/hr .Bolus ONE Administration Ketorolac Tromethamine 15 mg 02/26/21 09:56 02/26/21 10:14 Ketorolac 30 Mg/Ml Sdv IVPUSH 02/26/21 09:57 15 mg ONETIME ONE Administration Metoclopramide HCl 10 mg 02/26/21 09:56 02/26/21 10:14 Metoclopramide 10 Mg/2 Ml Sdv IVPUSH 02/26/21 09:57 10 mg ONETIME ONE Administration - Re-Assessments/Exams Free Text/Narrative Re-Assessment/Exam: 02/26/21 11:14 Patient's Covid test is positive. His chest x-ray does not show any evidence of Covid pneumonia. White blood cell count is normal. Will discharge patient with outpatient Regeneron monoclonal antibody therapy order. Return precautions were discussed at length. Departure - Departure Time of Disposition: 11:14 Disposition: Home, Self-Care 01 Condition: Good Clinical Impression: COVID-19 - Discharge Information Instructions: COVID-19: What to Do If You Are Sick- [facility] [place] (05/07/2020) Forms: ED Department Discharge Additional Instructions: Your Covid test was positive. You have been placed on the list for the Regeneron monoclonal antibody infusion. You can expect a phone call from the hospital later today or tomorrow to help set this up. The monoclonal antibody infusion can prevent progression to serious disease. If you are having chest pain or difficulty breathing then you need to come back to the emergency department for reassessment. Otherwise you can continue to take Tylenol and Motrin at home help with symptoms. You can also drink plenty of fluids. The following information is given to patients seen in the emergency department who are being discharged to home. This information is to outline your options for follow-up care. We provide all patients seen in our emergency department with a follow-up referral. The need for follow-up, as well as the timing and circumstances, are variable depending upon the specifics of your emergency department visit. If you don't have a primary care physician on staff, we will provide you with a referral. We always advise you to contact your personal physician following an emergency department visit to inform them of the circumstance of the visit and for follow-up with them and/or the need for any referrals to a consulting specialist. The emergency department will also refer you to a specialist when appropriate. This referral assures that you have the opportunity for follow-up care with a specialist. All of these measure are taken in an effort to provide you with optimal care, which includes your follow-up. Under all circumstances we always encourage you to contact your private physician who remains a resource for coordinating your care. When calling for follow-up care, please make the office aware that this follow-up is from your recent emergency room visit. If for any reason you are refused follow-up, please contact the [facility] t at and asked to speak to the emergency department charge nurse. Please follow up with your primary care physician. If you do not have a primary care physician, see below: [facility] [address] [place] [address] [phone] [facility] [address] [place] [address] [facility] [address] [place] [id number] Sepsis Event Note (ED) - Evaluation Sepsis Screening Result: No Definite Risk - Focused Exam Vital Signs: Vital Signs Temp Pulse Resp BP Pulse Ox 02/26/21 10:27 114 H 16 130/70 98 02/26/21 09:39 97.1 F 104 H 16 131/66 96 - My Orders Last 24 Hours: My Active Orders 02/26/21 09:56 Saline Lock Insert [OM.PC] Stat 02/26/21 10:05 COMPREHENSIVE METABOLIC PN,CMP [CHEM] Stat 02/26/21 10:41 STREP A BY PCR [MOLEC] Stat 02/26/21 10:50 Chest 1V Frontal [CR] Stat - Assessment/Plan Last 24 Hours: My Active Orders 02/26/21 09:56 Saline Lock Insert [OM.PC] Stat 02/26/21 10:05 COMPREHENSIVE METABOLIC PN,CMP [CHEM] Stat 02/26/21 10:41 STREP A BY PCR [MOLEC] Stat 02/26/21 10:50 Chest 1V Frontal [CR] Stat
[2021-02-26 10:41] LABS: CORONAVIRUS COVID-19 NAA POSITIVE (NEGATIVE); INFLUENZA A NAA NEGATIVE (NEGATIVE); INFLUENZA B NAA NEGATIVE (NEGATIVE)
[2021-02-26 11:02] LABS: BLOOD UREA NITROGEN,BUN 14 mg/dL (7.0-18.0); CARBON DIOXIDE,CO2 22.2 mmol/L (21.0-32.0); CHLORIDE,CL 104 mmol/L (98-107); GLUCOSE RANDOM 93 mg/dL (74-106); POTASSIUM,K 4.1 mmol/L (3.5-5.1); SODIUM,NA 140 mmol/L (136-148)
--- NOTE | 2021-02-26 11:48 | CR ---
INDICATION: COVID positive. TECHNIQUE: Chest 1 views. COMPARISON: November 12, 2020. FINDINGS: Cardiovascular and mediastinum: Heart size and vasculature are normal in caliber and appearance. Lungs and pleural spaces: Lungs are clear. No sign of infiltrate or mass. No sign of pleural effusion. No pneumothorax. Bones and soft tissues: No significant findings. IMPRESSION: Negative chest. No sign of pneumonia. Dictated by Anders Guy MD @ 02/26/2021 11:47:17 AM (Electronically Signed)
== END 2021-02-26 12:09 | disposition home or self-care (01) ==
LOC: MW.ED 09:34
DX: U07.1 COVID-19 (principal)
CPT/HCPCS: 0240U; 36415; 71045; 80053; 85025; 87651; 96374; 96375; 99284; A9270; J1200; J1885; J2765; J7030

== ENCOUNTER 2021-04-03 12:10 | Emergency (ER) | payer BC ==
[2021-04-03] MEDS ORDERED: Sodium Chloride 0.9% 2.5 ML Syringe FLUSH PRN (13:05)
[2021-04-03] MEDS ORDERED: Sodium Chloride 0.9% 10 ML Syringe FLUSH PRN (13:05)
[2021-04-03] MEDS ORDERED: Sodium Chloride 0.9% 1,000 ML IV ONE (13:05)
[2021-04-03 14:55] LABS: BLOOD UREA NITROGEN,BUN 14 mg/dL (7.0-18.0); CARBON DIOXIDE,CO2 27.2 mmol/L (21.0-32.0); CHLORIDE,CL 103 mmol/L (98-107); GLUCOSE RANDOM 89 mg/dL (74-106); POTASSIUM,K 3.9 mmol/L (3.5-5.1); SODIUM,NA 140 mmol/L (136-148)
== END 2021-04-03 15:30 | disposition home or self-care (01) ==
LOC: MW.ED 12:10
DX: R55 Syncope and collapse (principal)
CPT/HCPCS: 36415; 70450; 80053; 80305; 80307; 81003; 84484; 85025; 99284; J7030

== ENCOUNTER 2021-10-30 09:01 | Day surgery (SDC) | payer BC ==
[~2021-10-30 09:01] MED LIST: Lactated Ringers 1,000 ML IV SCH
[2021-10-30] MEDS ORDERED: Propofol 200 MG/20 ML SDV ONE ×3 (10:47→11:34)
[2021-10-30] MEDS ORDERED: fentaNYL 100 MCG/2 ML SDV ONE (10:48)
[2021-10-30] MEDS ORDERED: Midazolam 1 MG/ML 2 ML SDV ONE (10:48)
[2021-10-30] MEDS ORDERED: Ketamine 500 mg/10 ML MDV ONE (10:59)
[2021-10-30] MEDS ORDERED: Lactated Ringers 1,000 ML IV SCH (12:00)
== END 2021-10-30 12:50 | disposition home or self-care (01) ==
LOC: MW.SDS 09:01
PROVIDERS: ATTEND Surgery
DX: R19.4 Change in bowel habit (principal); G89.29 Other chronic pain; K20.0 Eosinophilic esophagitis; K29.00 Acute gastritis without bleeding; K29.50 Unspecified chronic gastritis without bleeding; K20.90 Esophagitis, unspecified without bleeding; K29.80 Duodenitis without bleeding; F41.9 Anxiety disorder, unspecified; J45.20 Mild intermittent asthma, uncomplicated; E66.9 Obesity, unspecified; G47.30 Sleep apnea, unspecified; F90.2 Attention-deficit hyperactivity disorder, combined type; K58.9 Irritable bowel syndrome, unspecified; F17.200 Nicotine dependence, unspecified, uncomplicated; K31.89 Other diseases of stomach and duodenum; Z80.0 Family history of malignant neoplasm of digestive organs; Z79.899 Other long term (current) drug therapy; Z68.37 Body mass index [BMI] 37.0-37.9, adult; Z86.16 Personal history of COVID-19
CPT/HCPCS: 43239; 45378; J2250; J2704; J3010; J3490; J7120; 00813

== ENCOUNTER 2021-11-18 08:41 | Emergency (ER) | payer OTHER, BC ==
[2021-11-18] MEDS ORDERED: Acetaminophen 325 MG Tab PO ONE (09:14)
[2021-11-18] MEDS ORDERED: Cyclobenzaprine 10 MG Tab PO ONE (09:14)
== END 2021-11-18 10:14 | disposition home or self-care (01) ==
LOC: MW.ED 08:41
DX: S16.1XXA Strain of muscle, fascia and tendon at neck level, initial encounter (principal); E66.9 Obesity, unspecified; Z68.37 Body mass index [BMI] 37.0-37.9, adult; Z86.16 Personal history of COVID-19; Z79.899 Other long term (current) drug therapy; V49.40XA Driver injured in collision with unspecified motor vehicles in traffic accident, initial encounter; Y92.410 Unspecified street and highway as the place of occurrence of the external cause
CPT/HCPCS: 72125; 99284; A9270

== ENCOUNTER 2022-01-03 20:43 | Emergency (ER) | payer BC ==
[2022-01-03] MEDS ORDERED: Sodium Chloride 0.9% 1,000 ML IV ONE (21:01)
[2022-01-03] MEDS ORDERED: Pantoprazole 80 MG in Sodium Chloride 0.9% 10 ML IVPUSH ONE (21:04)
[2022-01-03 21:48] LABS: CARBON DIOXIDE,CO2 26.1 mmol/L (21.0-32.0); POTASSIUM,K 3.2 mmol/L (3.5-5.1)
[2022-01-03] MEDS ORDERED: Iopamidol 755 MG/ML 500 ML Multipack Bottle IVPUSH ONE (22:14)
== END 2022-01-03 23:58 | disposition home or self-care (01) ==
LOC: MW.ED 20:43
DX: K92.2 Gastrointestinal hemorrhage, unspecified (principal); E66.9 Obesity, unspecified; Z68.38 Body mass index [BMI] 38.0-38.9, adult
CPT/HCPCS: 36415; 74174; 80053; 83605; 83690; 85025; 96374; 99284; C9113; J3490; J7030; Q9967

== ENCOUNTER 2022-01-11 07:41 | Emergency (ER) | payer BC ==
[2022-01-11] MEDS ORDERED: Ketorolac 30 MG/ML SDV IVPUSH ONE (08:27)
[2022-01-11] MEDS ORDERED: Diazepam 2 MG Tab PO ONE (08:27)
[2022-01-11] MEDS ORDERED: Famotidine 20 MG/2 ML SDV IVPUSH ONE (08:29)
[2022-01-11] MEDS ORDERED: Gadobenate Dimeglumine 529 MG/ML 20 ML SDV IVPUSH STA (09:24)
[2022-01-11 09:29] LABS: BLOOD UREA NITROGEN,BUN 12 mg/dL (7.0-18.0); CARBON DIOXIDE,CO2 27.4 mmol/L (21.0-32.0); CHLORIDE,CL 106 mmol/L (98-107); GLUCOSE RANDOM 104 mg/dL (74-106); POTASSIUM,K 4.1 mmol/L (3.5-5.1); SODIUM,NA 141 mmol/L (136-148)
[2022-01-11 09:36] LABS: ESTIMATED GFR 98 mL/min (>60)
== END 2022-01-11 11:39 | disposition home or self-care (01) ==
LOC: MW.ED 07:41
DX: M43.6 Torticollis (principal); E66.9 Obesity, unspecified; Z68.38 Body mass index [BMI] 38.0-38.9, adult; Z86.16 Personal history of COVID-19
CPT/HCPCS: 36415; 72156; 80053; 85025; 86140; 96374; 96375; 99283; A9270; A9577; J1885; J3490

== ENCOUNTER 2022-05-19 11:14 | Emergency (ER) | payer BC ==
[2022-05-19 13:16] LABS: CORONAVIRUS COVID-19 NAA NEGATIVE (NEGATIVE); INFLUENZA A NAA NEGATIVE (NEGATIVE); INFLUENZA B NAA NEGATIVE (NEGATIVE); RESPIRATORY SYNCYTIAL VIR NAA NEGATIVE (NEGATIVE)
== END 2022-05-19 14:05 | disposition home or self-care (01) ==
LOC: MW.ED 11:14
DX: B34.9 Viral infection, unspecified (principal); E66.9 Obesity, unspecified; Z68.38 Body mass index [BMI] 38.0-38.9, adult; Z86.16 Personal history of COVID-19; Z20.822 Contact with and (suspected) exposure to COVID-19
CPT/HCPCS: 0241U; 99283